=== PATIENT | female | born 2000 | race Two or more races ===

== ENCOUNTER 2022-11-28 05:15 | Emergency (ER) | payer OTHER ==
[~2022-11-28] VITALS: Ht 162.6 cm; Wt 44.9 kg
[2022-11-28] MEDS ORDERED: CABERGOLINE0.5 MG PO (05:31)
== END 2022-11-28 12:41 | disposition home or self-care (01) ==
LOC: ER 05:15
DX: K59.09 Other constipation (principal); R10.2 Pelvic and perineal pain; Z88.6 Allergy status to analgesic agent; Z88.8 Allergy status to other drugs, medicaments and biological substances; Z88.9 Allergy status to unspecified drugs, medicaments and biological substances

== ENCOUNTER 2023-03-08 10:31 | Emergency (ER) | payer OTHER ==
[~2023-03-08] VITALS: Ht 162.6 cm; Wt 46.3 kg
[~2023-03-08 10:31] MED LIST: CABERGOLINE0.5 MG PO
[2023-03-08] MEDS ORDERED: ZOFRAN8 MG PO (13:10)
[2023-03-08] MEDS ORDERED: PEPCID AC20 MG PO (13:10)
== END 2023-03-08 13:22 | disposition home or self-care (01) ==
LOC: ER 10:31
PROVIDERS: General Practice
DX: K29.70 Gastritis, unspecified, without bleeding (principal); R10.2 Pelvic and perineal pain; Z88.6 Allergy status to analgesic agent; Z88.9 Allergy status to unspecified drugs, medicaments and biological substances

== ENCOUNTER 2023-05-15 12:46 | Emergency (ER) | payer OTHER ==
[~2023-05-15] VITALS: Ht 162.6 cm; Wt 47.6 kg
[~2023-05-15 12:46] MED LIST changes: +PEPCID AC20 MG PO; +ZOFRAN8 MG PO
[2023-05-15 15:30] LABS: HEMATOCRIT 37.2 % (36.0-45.00); HEMOGLOBIN 12.5 g/dL (12.0-15.00); MEAN CELL VOLUME 89.1 fL (80.00-100.00); MEAN CORPUSCULAR HGB CONC 33.6 g/dl (32.0-36.0); PLATELET COUNT 156 K/uL (150-450); RED BLOOD COUNT 4.17 M/uL (4.00-6.00)
== END 2023-05-15 16:48 | disposition home or self-care (01) ==
LOC: ER 12:46
DX: J06.9 Acute upper respiratory infection, unspecified (principal); Z20.822 Contact with and (suspected) exposure to COVID-19; Z88.8 Allergy status to other drugs, medicaments and biological substances

== ENCOUNTER 2023-06-13 11:08 | Emergency (ER) | payer OTHER ==
[~2023-06-13] VITALS: Ht 162.6 cm; Wt 47.2 kg
== END 2023-06-13 12:51 | disposition home or self-care (01) ==
LOC: ER 11:09
DX: R42 Dizziness and giddiness (principal); E22.1 Hyperprolactinemia

== ENCOUNTER 2023-08-25 13:48 | Emergency (ER) | payer OTHER ==
[~2023-08-25] VITALS: Ht 162.6 cm; Wt 48.1 kg
[2023-08-25] MEDS ORDERED: FAMOTIDINE/PF 20 MG in 0.9 % SODIUM CHLORIDE 8 ML IV PUSH STA (15:18)
[2023-08-25] MEDS ORDERED: METHYLPREDNISOLONE SOD SUCC 125 MG VIAL IV STA (15:19)
[2023-08-25] MEDS ORDERED: IPRATROPIUM/ALBUTEROL SULFATE 3 ML AMPUL.NEB IH SCH (15:30)
[2023-08-25] MEDS ORDERED: GUAIFENESIN/DEXTROMETHORPHAN 100 MG/5 ML ML PO ONE (15:30)
[2023-08-25] MEDS ORDERED: 0.9 % SODIUM CHLORIDE 1,000 ML IV SCH (15:30)
[2023-08-25 16:15] LABS: HEMATOCRIT 39.4 % (36.0-45.00); HEMOGLOBIN 13.3 g/dL (12.0-15.00); MEAN CELL VOLUME 87.5 fL (80.00-100.00); MEAN CORPUSCULAR HEMOGLOBIN 29.5 pg (27.00-32.0); MEAN CORPUSCULAR HGB CONC 33.7 g/dl (32.0-36.0); PLATELET COUNT 161 K/uL (150-450)
[2023-08-25 16:47] LABS: ALBUMIN 3.8 gm/dL (3.4-5.0); BILIRUBIN TOTAL 0.27 mg/dL (0.3-1.2); CALCIUM 9.1 mg/dL (8.5-10.1); CREATININE SERUM 0.56 mg/dL (0.55-1.02); GFR 134.15; GLOBULINA 4.2 G/DL (2.4-3.5); POTASSIUM 3.81 mEq/L (3.5-5.1)
== END 2023-08-25 21:23 | disposition home or self-care (01) ==
LOC: ER 13:48
PROVIDERS: General Practice
DX: B34.9 Viral infection, unspecified (principal); E86.0 Dehydration; J20.9 Acute bronchitis, unspecified; R53.81 Other malaise; Z20.822 Contact with and (suspected) exposure to COVID-19; Z88.6 Allergy status to analgesic agent; Z88.8 Allergy status to other drugs, medicaments and biological substances; Z88.9 Allergy status to unspecified drugs, medicaments and biological substances

== ENCOUNTER 2023-10-05 08:57 | Emergency (ER) | payer OTHER ==
[~2023-10-05] VITALS: Ht 162.6 cm; Wt 46.7 kg
[2023-10-05] MEDS ORDERED: DEXAMETHASONE SODIUM PHOSPHATE 4 MG/ML VIAL IM ONE (10:30)
[2023-10-05] MEDS ORDERED: KETOROLAC TROMETHAMINE 30 MG VIAL IM ONE (10:30)
== END 2023-10-05 13:27 ==
LOC: ER 08:57
DX: M62.838 Other muscle spasm (principal); J45.909 Unspecified asthma, uncomplicated; K58.8 Other irritable bowel syndrome; J32.9 Chronic sinusitis, unspecified; Z88.8 Allergy status to other drugs, medicaments and biological substances; F41.8 Other specified anxiety disorders; I49.8 Other specified cardiac arrhythmias

== ENCOUNTER → 2024-08-26 | Emergency (ER) | payer OTHER ==
[~2024-08-26] VITALS: Ht 162.6 cm; Wt 46.3 kg
[2024-08-26 06:14] VITALS: BP 106/67; O2SAT 100
== END | disposition left against medical advice (07) ==
LOC: ER 05:55
DX: Z53.21 Procedure and treatment not carried out due to patient leaving prior to being seen by health care provider (principal)

== ENCOUNTER 2024-12-01 11:22 | Emergency (ER) | payer OTHER ==
[~2024-12-01] VITALS: Ht 162.6 cm; Wt 49.4 kg
[2024-12-01] MEDS ORDERED: PRENATAL 19 CH1 EACH PO (11:53)
[2024-12-01 14:53] LABS: HEMATOCRIT 37.1 % (34.1-44.9); HEMOGLOBIN 12.4 g/dL (11.2-15.7); PLATELET COUNT 227 K/uL (163-369); RED BLOOD COUNT 4.28 M/uL (3.93-5.22); RED CELL DISTRIBUTION WIDTH 12.9 % (11.6-14.4)
[2024-12-01 14:54] LABS: BASO % 0.5 % (0.1-1.2); EOS # 0.73 (0.04-0.54); EOS % 5.9 % (0.7-7.0); LYMPH # 2.27 (1.18-3.74); LYMPH % 18.2 % (19.3-53.1); MONO # 0.78 (0.24-0.82); MONO % 6.3 % (4.7-12.5); NEUT % 68.9 % (34.0-71.1)
[2024-12-01 15:57] LABS: INFLUENZA A AG NEGATIVE (NEGATIVE)
[2024-12-01 17:43] LABS: CALCIUM 9.1 mg/dL (8.5-10.1); CREATININE SERUM 0.41 mg/dL (0.55-1.02); GFR 190.59; POTASSIUM 4.3 mEq/L (3.5-5.1)
[2024-12-01 18:09] LABS: URINE APPEARANCE Clear; URINE BILIRRUBIN Negative (NEGATIVE); URINE BLOOD Negative; URINE COLOR Yellow; URINE GLUCOSE Negative (NEGATIVE); URINE KETONE Negative (NEGATIVE); URINE LEUKOCYTE Moderate; URINE NITRATE Negative; URINE PROTEIN Negative (NEGATIVE)
[2024-12-01 18:12] LABS: URINE EPITHELIAL CELLS 16.7 uL (0.0-38.8); URINE WBC 35.4 uL (0.0-23.2)
[2024-12-01] MEDS ORDERED: MACROBID 100 M100 MG PO (18:54)
== END 2024-12-01 19:24 | disposition home or self-care (01) ==
LOC: ER 11:41
PROVIDERS: General Practice
DX: O23.41 Unspecified infection of urinary tract in pregnancy, first trimester (principal); N39.0 Urinary tract infection, site not specified; Z3A.01 Less than 8 weeks gestation of pregnancy; Z88.8 Allergy status to other drugs, medicaments and biological substances

== ENCOUNTER 2025-01-19 16:04 | Emergency (ER) | payer OTHER ==
[~2025-01-19] VITALS: Ht 162.6 cm; Wt 49.4 kg
[~2025-01-19 16:04] MED LIST changes: +MACROBID 100 M100 MG PO; +PRENATAL 19 CH1 EACH PO
[2025-01-19] MEDS ORDERED: ACETAMINOPHEN 325 MG TABLET PO ONE (18:30)
[2025-01-19] MEDS ORDERED: ONDANSETRON HCL 2 MG/ML VIAL IV ONE (18:30)
[2025-01-19] MEDS ORDERED: FAMOtidine 10 MG/ML (4ML VIAL) IV ONE (18:30)
[2025-01-19 19:31] LABS: BASO % 0.3 % (0.1-1.2); EOS # 0.87 (0.04-0.54); EOS % 7.1 % (0.7-7.0); LYMPH # 2.66 (1.18-3.74); LYMPH % 21.7 % (19.3-53.1); MEAN PLATELET VOLUME 11.40 fl (9.4-12.4); MONO # 0.88 (0.24-0.82); MONO % 7.2 % (4.7-12.5); NEUT # 7.75 (1.56-6.13); NEUT % 63.3 % (34.0-71.1); RED CELL DISTRIBUTION WIDTH 13.2 % (11.6-14.4)
[2025-01-19 22:04] LABS: URINE APPEARANCE Clear; URINE BILIRRUBIN Negative (NEGATIVE); URINE BLOOD Negative; URINE COLOR Yellow; URINE GLUCOSE Negative (NEGATIVE); URINE LEUKOCYTE Negative; URINE NITRATE Negative; URINE PROTEIN Trace (NEGATIVE); URINE UROBILINOGEN 1.0 E.U./dl
[2025-01-19 22:08] LABS: URINE BACTERIA 32.4 uL (0.0-1933); URINE EPITHELIAL CELLS 8.3 uL (0.0-38.8); URINE RBC 2.3 uL (0.0-20.8); URINE WBC 2.3 uL (0.0-23.2)
[2025-01-19 22:22] LABS: URINE CAST 0.14 uL (0.0-1.40); URINE KETONE 80 (NEGATIVE)
[2025-01-19] MEDS ORDERED: PEPCID AC20 MG PO (22:30)
[2025-01-19] MEDS ORDERED: ZOFRAN8 MG PO (22:30)
== END 2025-01-19 22:39 | disposition home or self-care (01) ==
LOC: ER 16:04
PROVIDERS: General Practice
DX: O99.891 Other specified diseases and conditions complicating pregnancy (principal); Z3A.13 13 weeks gestation of pregnancy; Z88.8 Allergy status to other drugs, medicaments and biological substances; R10.2 Pelvic and perineal pain

== ENCOUNTER 2025-01-21 09:48 | Outpatient (CLI) | payer OTHER | END 2025-01-21 09:49 | disposition home or self-care (01) | LOC: PRENATAL 09:48 | PROVIDERS: ATTEND Obstetrics & Gynecology Maternal & Fetal Medicine | DX: O36.80X0 Pregnancy with inconclusive fetal viability, not applicable or unspecified (principal); Z36.82 Encounter for antenatal screening for nuchal translucency; Z14.8 Genetic carrier of other disease; Z3A.13 13 weeks gestation of pregnancy ==

== ENCOUNTER 2025-03-08 07:41 | Outpatient (CLI) | payer OTHER | END 2025-03-08 07:47 | disposition home or self-care (01) | LOC: PRENATAL 07:41 | PROVIDERS: ATTEND Obstetrics & Gynecology Maternal & Fetal Medicine | DX: O44.00 Complete placenta previa NOS or without hemorrhage, unspecified trimester (principal); O28.3 Abnormal ultrasonic finding on antenatal screening of mother; Z3A.20 20 weeks gestation of pregnancy ==

== ENCOUNTER 2025-05-04 13:41 | Outpatient (CLI) | payer OTHER | END 2025-05-04 14:04 | disposition home or self-care (01) | LOC: PRENATAL 13:41 | PROVIDERS: ATTEND Obstetrics & Gynecology Maternal & Fetal Medicine | DX: O26.849 Uterine size-date discrepancy, unspecified trimester (principal); O28.3 Abnormal ultrasonic finding on antenatal screening of mother; Z3A.29 29 weeks gestation of pregnancy ==

== ENCOUNTER 2025-05-22 22:48 | Outpatient (CLI) | payer OTHER ==
[2025-05-22 22:15] VITALS: BP 111/71
[2025-05-22] MEDS ORDERED: RINGERS SOLUTION,LACTATED 1,000 ML IV SCH (23:00)
[2025-05-22] MEDS ORDERED: TERBUTALINE SULFATE 1 MG/ML AMPUL SUBCUTANEO SCH (23:00)
[2025-05-22 23:20] VITALS: BP 109/68; O2SAT 100
[2025-05-22 23:41] LABS: BASO % 0.2 % (0.1-1.2); EOS # 0.15 (0.04-0.54); EOS % 1.3 % (0.7-7.0); LYMPH # 2.26 (1.18-3.74); LYMPH % 19.3 % (19.3-53.1); MEAN PLATELET VOLUME 11.50 fl (9.4-12.4); MONO # 1.22 (0.24-0.82); MONO % 10.4 % (4.7-12.5); NEUT # 7.90 (1.56-6.13); NEUT % 67.3 % (34.0-71.1); RED CELL DISTRIBUTION WIDTH 12.4 % (11.6-14.4)
[2025-05-22 23:42] LABS: URINE APPEARANCE Cloudy; URINE BILIRRUBIN Negative (NEGATIVE); URINE BLOOD Negative; URINE COLOR Yellow; URINE GLUCOSE Negative (NEGATIVE); URINE KETONE Negative (NEGATIVE); URINE LEUKOCYTE Moderate; URINE NITRATE Negative; URINE PROTEIN Negative (NEGATIVE); URINE UROBILINOGEN 1.0 E.U./dl
[2025-05-22 23:43] LABS: URINE BACTERIA 569.6 uL (0.0-1933); URINE EPITHELIAL CELLS 8.3 uL (0.0-38.8); URINE WBC 30.4 uL (0.0-23.2)
[2025-05-22 23:45] LABS: URINE CAST 0.14 uL (0.0-1.40); URINE RBC 1.6 uL (0.0-20.8)
[2025-05-22 23:46] LABS: TYPE CELLS SQUAMOUS
[2025-05-23 03:58] VITALS: BP 107/64
[2025-05-23 07:20] VITALS: BP 113/73
[2025-05-23 11:06] VITALS: BP 93/61
[2025-05-23 14:23] VITALS: BP 93/61
== END 2025-05-23 14:59 | disposition home or self-care (01) ==
LOC: OBS/DEL 22:48
PROVIDERS: Obstetrics & Gynecology; ATTEND Specialist
DX: O60.03 Preterm labor without delivery, third trimester (principal); Z3A.32 32 weeks gestation of pregnancy

== ENCOUNTER → 2025-06-15 07:16 | Outpatient (CLI) | payer OTHER | END | disposition home or self-care (01) | LOC: PRENATAL 07:16 | PROVIDERS: ATTEND Obstetrics & Gynecology Maternal & Fetal Medicine | DX: O26.843 Uterine size-date discrepancy, third trimester (principal); O36.8130 Decreased fetal movements, third trimester, not applicable or unspecified; O28.3 Abnormal ultrasonic finding on antenatal screening of mother; Z3A.35 35 weeks gestation of pregnancy ==

== ENCOUNTER 2025-06-29 15:40 | Outpatient (CLI) | payer OTHER | END 2025-06-29 16:36 | disposition home or self-care (01) | LOC: NST 15:40 | PROVIDERS: ATTEND Specialist | DX: Z34.83 Encounter for supervision of other normal pregnancy, third trimester (principal) ==

== ENCOUNTER 2025-07-05 09:09 | Inpatient (IN) | payer OTHER ==
[~2025-07-05] VITALS: Ht 162.6 cm; Wt 63.0 kg
[2025-07-05] VITALS (7 sets, daily range): BP systolic 124–157; BP diastolic 78–87
[2025-07-05] MEDS ORDERED: AMPICILLIN SODIUM 2,000 MG VIAL IV STA (09:20)
[2025-07-05] MEDS ORDERED: OXYTOCIN 500 ML IV SCH (09:30)
[2025-07-05] MEDS ORDERED: OXYTOCIN 20 UNITS/500ML RL PIGGYBAG IV ONE (09:30)
[2025-07-05] MEDS ORDERED: RINGERS SOLUTION,LACTATED 1,000 ML IV SCH (09:30)
[2025-07-05 10:23] LABS: BASO % 0.2 % (0.1-1.2); EOS # 0.13 (0.04-0.54); EOS % 1.0 % (0.7-7.0); LYMPH # 1.94 (1.18-3.74); LYMPH % 14.3 % (19.3-53.1); MEAN PLATELET VOLUME 13.20 fl (9.4-12.4); MONO # 1.19 (0.24-0.82); MONO % 8.8 % (4.7-12.5); NEUT # 10.05 (1.56-6.13); NEUT % 74.0 % (34.0-71.1); RED CELL DISTRIBUTION WIDTH 12.8 % (11.6-14.4)
[2025-07-05 10:26] LABS: URINE APPEARANCE Clear; URINE BILIRRUBIN Negative (NEGATIVE); URINE BLOOD Negative; URINE COLOR Yellow; URINE GLUCOSE Negative (NEGATIVE); URINE KETONE Negative (NEGATIVE); URINE LEUKOCYTE Small; URINE NITRATE Negative; URINE PROTEIN Negative (NEGATIVE); URINE UROBILINOGEN 1.0 E.U./dl
[2025-07-05 10:34] LABS: URINE BACTERIA 84.5 uL (0.0-1933); URINE EPITHELIAL CELLS 10.8 uL (0.0-38.8); URINE RBC 3.8 uL (0.0-20.8); URINE WBC 57.0 uL (0.0-23.2)
[2025-07-05 10:38] LABS: URINE CAST 0.00 uL (0.0-1.40)
[2025-07-05 10:48] LABS: INR < 0.93
[2025-07-05 11:45] LABS: ALT/SGPT 15.0 U/L (12-78); AST/SGOT 21.0 U/L (15-37); BILIRUBIN TOTAL 0.3 mg/dL (0.3-1.2); BUN CREA RATIO 18.0 (7.0-25.0); CREATININE SERUM 0.5 mg/dL (0.55-1.02); GFR 150.33; GLOBULINA 4.0 G/DL (2.4-3.5); GLUCOSE FASTING 60.0 mg/dL (65-100); OSMOLALITY SERUM 280.0 MOSM/KG (275-295)
[2025-07-05] MEDS ORDERED: LIDOCAINE HCL 1% 10ML VIAL ONE ×2 (12:02→13:00)
[2025-07-05] MEDS ORDERED: CHLORHEXIDINE GLUCONATE 120 ML BOTTLE TOP ONE ×3 (12:02→15:00)
[2025-07-05] MEDS ORDERED: ERYTHROMYCIN BASE OPHT 1GM EACH TUBE OP ONE ×3 (12:02→15:00)
[2025-07-05] MEDS ORDERED: OXYTOCIN 20 UNITS/1000ML RL PIGGYBAG IV ONE ×2 (12:02→12:59)
[2025-07-05] MEDS ORDERED: MORPHINE SULFATE 4 MG/ML VIAL IV ONE (12:15)
[2025-07-05] MEDS ORDERED: AMPICILLIN SODIUM 1,000 MG VIAL IV SCH (13:00)
[2025-07-05] MEDS ORDERED: CARBOPROST TROMETHAMINE 250 MCG/ML AMPUL IM ONE (13:57)
[2025-07-05] MEDS ORDERED: CARBOPROST TROMETHAMINE 250 MCG/ML AMPUL IM STA (14:50)
[2025-07-05] MEDS ORDERED: LIDOCAINE HCL 1% 10ML VIAL IJ ONE (15:00)
[2025-07-05] MEDS ORDERED: ACETAMINOPHEN 500 MG GEL..CAP PO PRN (15:00)
[2025-07-05] MEDS ORDERED: OXYTOCIN 1,000 ML IV SCH (15:15)
[2025-07-06] VITALS: BP 128/80
[2025-07-06 01:37] LABS: BASO % 0.2 % (0.1-1.2); EOS # 0.03 (0.04-0.54); EOS % 0.2 % (0.7-7.0); LYMPH # 1.50 (1.18-3.74); LYMPH % 8.0 % (19.3-53.1); MEAN PLATELET VOLUME 13.30 fl (9.4-12.4); MONO # 1.49 (0.24-0.82); MONO % 7.9 % (4.7-12.5); NEUT # 15.52 (1.56-6.13); NEUT % 82.7 % (34.0-71.1); RED CELL DISTRIBUTION WIDTH 12.8 % (11.6-14.4)
[2025-07-06 10:14] VITALS: BP 120/81; O2SAT 99
[2025-07-06] MEDS ORDERED: BENZOCAINE/MENTHOL 90 ML BOTTLE TOP SCH (13:00)
[2025-07-06] MEDS ORDERED: HYDROCORTISONE 2.5% 30 GM TUBE RECTAL SCH (13:00)
[2025-07-06 15:52] VITALS: BP 126/83
[2025-07-06] MEDS ORDERED: CITRIC ACID/SODIUM CITRATE 30 ML BLIST.PACK PO ONE (21:00)
[2025-07-07] VITALS: BP 122/82
== END 2025-07-07 13:34 | disposition home or self-care (01) | DRG 807 ==
LOC: LDR 09:09 → OB/GYN 15:24
PROVIDERS: ADMIT Specialist; ATTEND Specialist
PROC: 10E0XZZ Delivery of Products of Conception, External Approach (ICD-10-PCS; principal; 2025-07-05)
PROC: 0KQM0ZZ Repair Perineum Muscle, Open Approach (ICD-10-PCS; 2025-07-05)
PROC: 0W8NXZZ Division of Female Perineum, External Approach (ICD-10-PCS; 2025-07-05)
PROC: 4A1HXCZ Monitoring of Products of Conception, Cardiac Rate, External Approach (ICD-10-PCS; 2025-07-05)
DX: O70.1 Second degree perineal laceration during delivery (principal); Z37.0 Single live birth; Z3A.37 37 weeks gestation of pregnancy